=== PATIENT | male | born 1960 | race African-American/Black ===

== ENCOUNTER 2021-07-22 11:46 | Inpatient (IN) ==
[2021-07-22] MEDS ORDERED: ALBUTEROL/IPRATROPIUM 3 ML NEB RESP TX STA (12:46)
[2021-07-22] MEDS ORDERED: ONDANSETRON 4 MG/2 ML VIAL IV STA (12:47)
[2021-07-22] MEDS ORDERED: KETOROLAC 30 MG/1 ML VIAL IV STA (12:47)
[2021-07-22] MEDS ORDERED: LACTATED RINGERS 1,000 ML IV ONE (12:49)
[2021-07-22] MEDS ORDERED: AZITHROMYCIN INJ 500 MG in SODIUM CHLORIDE 0.9% 250 ML IV STA (13:39)
[2021-07-22] MEDS ORDERED: cefTRIAXone 1,000 MG in SODIUM CHLORIDE 0.9% 100 ML IV STA (13:40)
[2021-07-22 13:58] LABS: Basophils % 0.4 % (0.0-0.8); Hemoglobin 16.5 GM/DL (14.0-18.0); Immature Granulocytes % 0.4 %; Immature Granulocytes Absolute 0.03 #; Lymphocytes % 12.8 % (21.2-54.2); Mean Corpuscular HGB Conc 34.4 GM/DL (32-36); Mean Corpuscular Volume 92.8 FL (87-102); Mean Platelet Volume 10.9 FL (9.6-12.0); Monocytes # 0.7 10*3/uL (0.11-0.8); Monocytes % 9.2 % (1.7-12.7); Neutrophils % 77.2 % (38.7-73.9); Platelet Count 123 T/CUMM (130-400); Red Blood Count 5.17 MC/CUMM (3.8-5.5); Red Cell Distribution Width 13.4 % (9.3-17.3)
[2021-07-22 14:32] LABS: Albumin 3.3 G/DL (3.4-5.0); Bilirubin,Total 0.9 MG/DL (0.20-1.00); Calcium 8.7 MG/DL (8.5-10.1); Potassium 3.8 MMOL/L (3.5-5.1); Total Protein 7.7 G/DL (6.4-8.2)
[2021-07-22] MEDS ORDERED: GLUCAGON 1 MG VIAL IM PRN (14:55)
[2021-07-22] MEDS ORDERED: ONDANSETRON 4 MG/2 ML VIAL IV PRN (14:55)
[2021-07-22] MEDS ORDERED: NICOTINE 21 MG/24 HR PATCH TRANSDERM PRN (14:55)
[2021-07-22] MEDS ORDERED: guaiFENesin/DM ER 600-30 MG TABLET PO PRN (14:55)
[2021-07-22] MEDS ORDERED: MELATONIN 3 MG TABLET PO PRN (14:55)
[2021-07-22] MEDS ORDERED: DEXTROSE 50% 25 GM/50 ML VIAL IV PRN (15:14)
[2021-07-22] MEDS ORDERED: DEXTROSE 10% 250 ML BAG IV PRN (15:19)
[2021-07-22 15:47] LABS: Ferritin 730.5 ng/mL (26-388)
[2021-07-22] MEDS ORDERED: REMDESIVIR 200 MG in SODIUM CHLORIDE 0.9% 210 ML IV ONE (17:00)
[2021-07-22 17:45] LABS: PT Patient Result 10.6 SECS (10.5-12.0)
[2021-07-22] MEDS: ALBUTEROL 2.5 MG/3 ML NEB RESP TX SCH ×2 (19:20→23:55)
[2021-07-22] MEDS: ACETAMINOPHEN 325 MG TABLET PO SCH (19:41)
[2021-07-22] MEDS: ENOXAPARIN 40 MG/0.4 ML SYRINGE SUBCUT SCH (21:55)
[2021-07-22] MEDS: FAMOTIDINE 20 MG TABLET PO SCH (21:56)
[2021-07-22] MEDS: ASCORBIC ACID 500 MG TABLET PO SCH (21:56)
[2021-07-23] MEDS: ACETAMINOPHEN 325 MG TABLET PO SCH ×4 (00:29→18:40)
[2021-07-23 05:07] LABS: Basophils % 0.2 % (0.0-0.8); Hematocrit 44.2 VOL% (42.0-52.0); Immature Granulocytes % 0.4 %; Immature Granulocytes Absolute 0.04 #; Lymphocytes # 0.6 10*3/uL (1.4-4.0); Lymphocytes % 6.6 % (21.2-54.2); Mean Corpuscular HGB Conc 33.9 GM/DL (32-36); Mean Platelet Volume 10.7 FL (9.6-12.0); Monocytes # 0.6 10*3/uL (0.11-0.8); Monocytes % 5.8 % (1.7-12.7); Platelet Count 127 T/CUMM (130-400); Red Cell Distribution Width 13.6 % (9.3-17.3); White Blood Count 9.4 T/CUMM (4-12)
[2021-07-23 05:29] LABS: Albumin 2.7 G/DL (3.4-5.0); Bilirubin,Total 0.8 MG/DL (0.20-1.00); Calcium 7.9 MG/DL (8.5-10.1); Ferritin 641.9 ng/mL (26-388); Osmolality,Calculated 273.8 MOS/KG (273-304); Potassium 3.8 MMOL/L (3.5-5.1); Total Protein 6.5 G/DL (6.4-8.2)
[2021-07-23 06:12] LABS: Sedimentation Rate-Westergren 25 MM/HR (0-20)
[2021-07-23] MEDS: ALBUTEROL 2.5 MG/3 ML NEB RESP TX SCH ×2 (07:16→20:33)
[2021-07-23] MEDS: CETIRIZINE 10 MG TABLET PO SCH (09:19)
[2021-07-23] MEDS: ASCORBIC ACID 500 MG TABLET PO SCH ×2 (09:19→20:23)
[2021-07-23] MEDS: ZINC GLUCONATE 50 MG TABLET PO SCH (09:19)
[2021-07-23] MEDS: FAMOTIDINE 20 MG TABLET PO SCH ×2 (09:19→20:22)
[2021-07-23] MEDS: AZITHROMYCIN 250 MG TABLET PO SCH (09:19)
[2021-07-23] MEDS: CHOLECALCIFEROL 1,000 UNIT TABLET PO SCH (09:19)
[2021-07-23] MEDS: cefTRIAXone 1,000 MG in SODIUM CHLORIDE 0.9% 100 ML IV SCH (09:23)
[2021-07-23] MEDS: DEXAMETHASONE 4 MG/1 ML VIAL IV SCH (09:26)
[2021-07-23] MEDS: REMDESIVIR 100 MG in SODIUM CHLORIDE 0.9% 100 ML IV SCH (10:08)
[2021-07-23] MEDS: ENOXAPARIN 40 MG/0.4 ML SYRINGE SUBCUT SCH (20:24)
[2021-07-24] MEDS: ACETAMINOPHEN 325 MG TABLET PO SCH ×4 (00:23→17:30)
[2021-07-24] MEDS: ALBUTEROL 2.5 MG/3 ML NEB RESP TX SCH (01:06)
[2021-07-24] MEDS: FAMOTIDINE 20 MG TABLET PO SCH ×2 (09:29→22:00)
[2021-07-24] MEDS: AZITHROMYCIN 250 MG TABLET PO SCH (09:30)
[2021-07-24] MEDS: CHOLECALCIFEROL 1,000 UNIT TABLET PO SCH (09:30)
[2021-07-24] MEDS: ASCORBIC ACID 500 MG TABLET PO SCH ×2 (09:30→22:00)
[2021-07-24] MEDS: CETIRIZINE 10 MG TABLET PO SCH (09:30)
[2021-07-24] MEDS: ZINC GLUCONATE 50 MG TABLET PO SCH (09:31)
[2021-07-24] MEDS: DEXAMETHASONE 4 MG/1 ML VIAL IV SCH (09:31)
[2021-07-24] MEDS: cefTRIAXone 1,000 MG in SODIUM CHLORIDE 0.9% 100 ML IV SCH (09:35)
[2021-07-24] MEDS: REMDESIVIR 100 MG in SODIUM CHLORIDE 0.9% 100 ML IV SCH (11:12)
[2021-07-24] MEDS ORDERED: ALBUTEROL INHALER 18 GM INH SCH (13:00)
[2021-07-24] MEDS: ENOXAPARIN 40 MG/0.4 ML SYRINGE SUBCUT SCH (22:01)
[2021-07-25] MEDS: ACETAMINOPHEN 325 MG TABLET PO SCH ×2 (00:38→06:12)
[2021-07-25] MEDS: ASCORBIC ACID 500 MG TABLET PO SCH (08:11)
[2021-07-25] MEDS: CETIRIZINE 10 MG TABLET PO SCH (08:12)
[2021-07-25] MEDS: CHOLECALCIFEROL 1,000 UNIT TABLET PO SCH (08:12)
[2021-07-25] MEDS: FAMOTIDINE 20 MG TABLET PO SCH (08:12)
[2021-07-25] MEDS: ZINC GLUCONATE 50 MG TABLET PO SCH (08:12)
[2021-07-25] MEDS: AZITHROMYCIN 250 MG TABLET PO SCH (08:12)
[2021-07-25] MEDS: DEXAMETHASONE 4 MG/1 ML VIAL IV SCH (08:13)
[2021-07-25] MEDS: cefTRIAXone 1,000 MG in SODIUM CHLORIDE 0.9% 100 ML IV SCH (08:16)
[2021-07-25 08:23] VITALS: BP 132/85
[2021-07-25] MEDS ORDERED: PNEUMOCOCCAL VACCINE (23 VALENT) 0.5 ML VIAL IM ONE (09:00)
[2021-07-25] MEDS: REMDESIVIR 100 MG in SODIUM CHLORIDE 0.9% 100 ML IV SCH (09:14)
== END 2021-07-25 10:57 | disposition home or self-care (01) | DRG 177 ==
LOC: N.ED 11:46 → N.EDINP 11:46 → SUATTDRO 15:14 → N.5E 07-23 05:16
PROVIDERS: ADMIT Internal Medicine; ATTEND Internal Medicine